=== PATIENT | male | born 1980 | race Two or more races ===

== ENCOUNTER 2021-11-07 10:25 | Emergency (ER) | payer SELFPAY ==
[2021-11-07] MEDS ORDERED: Ketorolac 60 MG/2 ML SDV IM ONE (11:05)
[2021-11-07] MEDS ORDERED: Acetaminophen/oxyCODONE 325-5 MG Tab PO ONE (11:05)
== END 2021-11-07 14:58 | disposition home or self-care (01) ==
LOC: MW.ED 10:25
DX: S79.911A Unspecified injury of right hip, initial encounter (principal); W10.8XXA Fall (on) (from) other stairs and steps, initial encounter
CPT/HCPCS: 72192; 73502; 73552; 96372; 99284; J1885